=== PATIENT | female | born 1995 | race African-American/Black ===

== ENCOUNTER 2025-01-02 13:16 | Inpatient (IN) | payer OTHER ==
[2025-01-02] MEDS ORDERED: NICOTINE POLACRILEX 2 MG GUM BUC PRN (14:37)
[2025-01-02] MEDS ORDERED: MAGNESIUM HYDROX 2400MG/30ML ORAL SUSPENSION 30 ML CUP PO PRN (14:37)
[2025-01-02] MEDS ORDERED: NALOXONE (NARCAN) HCL 4 MG/0.1 ML SPRAY NS PRN (14:37)
[2025-01-02] MEDS ORDERED: MAG HYDROX/AL HYDROX/SIMETH 30 ML UNIT-DOSE CUP PO PRN (14:37)
[2025-01-02] MEDS ORDERED: guaiFENesin 600 MG TABLET.ER (FP) PO PRN (14:37)
[2025-01-02] MEDS ORDERED: BENZOCAINE/MENTHOL (CHLORASEPTIC ) LOZENGE MM PRN (14:37)
[2025-01-02] MEDS ORDERED: NALOXONE HCL 0.4 MG/ML VIAL IVPUSH PRN (14:37)
[2025-01-02] MEDS ORDERED: BENZONATATE 200 MG CAPSULE PO PRN (14:37)
[2025-01-02] MEDS ORDERED: LOPERAMIDE HCL 2 MG CAPSULE PO PRN (14:37)
[2025-01-02] MEDS ORDERED: POLYETHYLENE GLYCOL (HEALTHYLAX) 3350 17 GM PACKET PO PRN (14:37)
[2025-01-02] MEDS ORDERED: P-EPHED 60MG/TRIPROLIDI 2.5MG TABLET PO PRN (14:37)
[2025-01-02] MEDS ORDERED: NICOTINE POLACRILEX 2 MG LOZENGE BC PRN (14:37)
[2025-01-02] MEDS: METHOCARBAMOL 500 MG TABLET PO PRN (18:28)
[2025-01-02] MEDS: hydrOXYzine PAMOATE 25 MG CAPSULE (FP) PO PRN (18:29)
[2025-01-02] MEDS: AMITRIPTYLINE HCL 25 MG TABLET PO ONE (20:06)
[2025-01-02] MEDS: MELATONIN 5 MG TABLETS PO SCH (21:47)
[2025-01-02] MEDS: THIAMINE 100 MG TABLET PO SCH (21:47)
[2025-01-02] MEDS: SUVOREXANT 10 MG TABLET PO PRN (21:48)
[2025-01-02] MEDS: BUDESONIDE/FORMETEROL FUMARATE 80/4.5 mcg INHALER IH SCH (21:50)
[2025-01-03] MEDS: PRENATAL VITAMINS W/ FOLIC ACID TABLET (FP) PO SCH (10:14)
[2025-01-03] MEDS: HYDROCHLOROTHIAZIDE 25 MG TABLET (FP) PO SCH (10:14)
[2025-01-03] MEDS: amLODIPine BESYLATE 10 MG TABLET (FP) PO SCH (10:14)
[2025-01-04] MEDS: amLODIPine BESYLATE 10 MG TABLET (FP) PO ONE (06:23)
[2025-01-04] MEDS: METHOCARBAMOL 500 MG TABLET PO SCH (18:50)
[2025-01-04] MEDS: PRAZOSIN HCL 1 MG CAPSULE PO SCH (21:12)
[2025-01-04] MEDS: QUEtiapine FUMARATE 25 MG TABLET PO SCH (21:12)
[2025-01-05] MEDS: QUEtiapine FUMARATE 25 MG TABLET PO SCH (21:17)
[2025-01-10] MEDS ORDERED: TUBERCULIN PPD 5 TU/0.1ML VIAL ID ONE (12:25)
[2025-01-11 17:59] LABS: URINE APPEARANCE CLEAR; URINE BILIRUBIN NEGATIVE (NEGATIVE); URINE COLOR YELLOW; URINE GLUCOSE (UA) NEGATIVE (NEGATIVE); URINE KETONE NEGATIVE (NEGATIVE); URINE LEUK ESTERASE NEGATIVE (NEGATIVE); URINE NITRITE NEGATIVE (NEGATIVE); URINE PROTEIN NEGATIVE (NEGATIVE); URINE UROBILINOGEN 0.2 mg/dL (0.2-1.0)
[2025-01-12] MEDS: ACETAMINOPHEN 325 MG TABLET (FP) PO PRN (13:03)
[2025-01-12] MEDS: METHOCARBAMOL 500 MG TABLET PO PRN (21:27)
[2025-01-13] MEDS: BENZOCAINE 20 % GEL TUBE MM PRN (21:27)
[2025-01-16 22:10] VITALS: RESP 18; TEMP 97.8
[2025-01-17 09:14] VITALS: BP 126/78; PULSE 102
== END 2025-01-17 09:45 | disposition home or self-care (01) | DRG 772 ==
LOC: YASAS 13:16 → Y5N 13:18
PROVIDERS: ADMIT Neuromusculoskeletal Medicine & OMM; ATTEND Psychiatry & Neurology Pain Medicine
PROC: HZ42ZZZ Group Counseling for Substance Abuse Treatment, Cognitive-Behavioral (ICD-10-PCS; principal; 2025-01-02)
DX: F10.20 Alcohol dependence, uncomplicated (principal); F11.20 Opioid dependence, uncomplicated; F17.210 Nicotine dependence, cigarettes, uncomplicated; F19.282 Other psychoactive substance dependence with psychoactive substance-induced sleep disorder; I10 Essential (primary) hypertension; N94.10 Unspecified dyspareunia; R51.9 Headache, unspecified
CPT/HCPCS: 36415; 81003; 87491; 87522; 87536; 87591; 87661